=== PATIENT | female | born 1970 | race Caucasian/White ===

== ENCOUNTER → 2023-11-06 08:21 | Outpatient (REF) | payer OTHER, SELFPAY | LOC: HWRAD 08:21 | PROVIDERS: ATTENDING PHYSICIAN Family Medicine | DX: M21.619 Bunion of unspecified foot (principal); N95.9 Unspecified menopausal and perimenopausal disorder | CPT/HCPCS: 73620; 77080 ==

== ENCOUNTER → 2024-04-08 07:29 | Outpatient (REF) | payer OTHER, SELFPAY | LOC: HWWDC 07:29 | PROVIDERS: ATTENDING PHYSICIAN Family Medicine; REFERRING PHYSICIAN Obstetrics & Gynecology Gynecology | DX: Z12.31 Encounter for screening mammogram for malignant neoplasm of breast (principal) | CPT/HCPCS: 77063; 77067 ==

== ENCOUNTER → 2025-07-27 15:17 | Outpatient (REF) | payer OTHER, SELFPAY | LOC: HWWDC 15:17 | PROVIDERS: ATTENDING PHYSICIAN Obstetrics & Gynecology Gynecology; FAMILY PHYSICIAN Nurse Practitioner | DX: Z12.31 Encounter for screening mammogram for malignant neoplasm of breast (principal) | CPT/HCPCS: 77063; 77067 ==